=== PATIENT | male | born 1980 | race Caucasian/White ===

== ENCOUNTER 2023-08-08 02:43 | Emergency (ER) | payer OTHER, MEDICAID ==
[~2023-08-08] VITALS: Ht 177.8 cm; Wt 70.0 kg
[2023-08-08 02:45] VITALS: O2SAT 99
[2023-08-08] MEDS ORDERED: ACETAMINOPHEN 325MG TABLET PO STA (03:51)
[2023-08-08] MEDS ORDERED: SODIUM CHLORIDE 0.9% 1,000 ML IV ONE (04:00)
[2023-08-08 04:14] LABS: BASOPHILS % 0.6 % (0.0-2.0); EOSINOPHILS % 3.6 % (0.0-5.0); HEMATOCRIT. 46.4 % (42.0-52.0); HEMOGLOBIN. 15.5 g/dL (14.0-18.0); LYMPHOCYTES % 9.7 % (20.0-50.0); MEAN CORPUSCULAR HGB CONC 33.5 g/dL (31.0-37.0); MEAN CORPUSCULAR VOLUME 98.3 fL (80.0-94.0); MEAN PLATELET VOLUME 7.4 fl (7.4-10.4); MONOCYTES % 6.9 % (2.0-8.0); NEUTROPHILS % 79.2 % (40.0-76.0); PLATELET 232 x1000/uL (130-400); RED BLOOD CELL COUNT 4.72 mill/uL (4.7-6.1); RED CELL DISTRIBUTION WIDTH 15.6 % (11.6-14.6); WHITE BLOOD COUNT 9.9 x1000/uL (4.5-11.0)
[2023-08-08 04:40] LABS: ALANINE AMINOTRANSFERASE 22 IU/L (10-49); ALBUMIN 3.6 g/dL (3.2-4.8); ASPARTATE AMINOTRANSFERASE 32 IU/L (<34); BILIRUBIN TOTAL 0.7 mg/dL (0.1-1.0); CALCIUM 8.8 mg/dL (8.7-10.4); CARBON DIOXIDE 27 mEq/L (21-32); CHLORIDE 108 mEq/L (98-107); CREATININE 0.9 mg/dL (0.6-1.3); GLUCOSE 96 mg/dL (70-105); POTASSIUM 4.3 mEq/L (3.5-5.1); PROTEIN TOTAL 6.2 g/dL (6.0-8.3); SODIUM 140 mEq/L (136-145); UREA NITROGEN BLOOD 18 mg/dL (9-23)
[2023-08-08] MEDS ORDERED: *PATIENT'S OWN MEDICATION STORAGE XX SCH (05:30)
[2023-08-08] MEDS ORDERED: LORAZEPAM 2MG/ML CPJ IM STA (07:45)
[2023-08-08] MEDS ORDERED: OLANZAPINE 10 MG/VIAL IM STA (07:45)
[2023-08-08] MEDS ORDERED: ENOXAPARIN 60MG/0.6ML SYR SUBCUT ONE (11:00)
[2023-08-08] MEDS ORDERED: ACETAMINOPHEN 500MG TABLET PO NR (16:00)
[2023-08-08] MEDS ORDERED: ENOXAPARIN 80MG/0.8ML SYR SUBCUT NR (16:00)
[2023-08-08] MEDS ORDERED: LORAZEPAM 2MG/ML CPJ IM NR (16:15)
[2023-08-08] MEDS ORDERED: OLANZAPINE 10 MG/VIAL IM NR (16:15)
[2023-08-08 19:09] VITALS: BP 122/88; PULSE 85; RESP 18; TEMP 98.4
== END 2023-08-09 00:06 ==
LOC: ER 03:09 → UNDOADMIN 08:16 → MICUSO 08:16 → EDBEDREQTM 08:19 → EDBEDREQ 08:19 → UNDODISIN 22:46
DX: I82.623 Acute embolism and thrombosis of deep veins of upper extremity, bilateral (principal); F41.9 Anxiety disorder, unspecified; E11.9 Type 2 diabetes mellitus without complications
CPT/HCPCS: 99285; 93970; 80053; 83605; 85025; 87804 ×2; 36415; 96372; J1650; J7030